=== PATIENT | female | born 1965 | race African-American/Black ===

== ENCOUNTER → 2016-07-27 | Outpatient (CLI) | payer OTHER ==
[~2016-07-27] VITALS: Ht 167.6 cm; Wt 166.6 kg
[~2016-07-27] MED LIST: ASPI1TAB69 PO; ATOR10TA15 PO; CARV12.52 PO; CHLORHEXIDINE GLUCONATE 2 % 1 PACK (2 CLOTHS) TOPICAL PRN; GLIP10TA6 PO; INSULIN HUMAN REGULAR 1,000 UNITS/10 ML VIAL SQ PRN; LACTATED RINGER'S 1000 ML IV PRN; LOSA50TA PO; MELO-1 PO; METOPROLOL TARTRATE 25 MG TAB PO PRN; NOVONP2 SQ; ONDANSETRON HCL 4 MG/2 ML VIAL IV PUSH ONE; PHENYLEPH/NS 1000 MCG/10 ML SYR IV ONE; POVIDONE IODINE 5% (ANTISEPSIS KIT) 4 APPLICATIONS EACH NARE PRN; PROM25TA5 PO; PROPOFOL 200 MG/20 ML AMP IV ONE; SODIUM CHLORID 0.9% 500 ML IV PRN; SPIR25TA PO; TORS10TA2 PO; ZANTTAB9 PO; ePHEDrine/NS 25 MG/5 ML SYR IV ONE
[2016-07-27 12:50] VITALS: BP 144/82; PULSE 82; RESP 18; TEMP 99.1; O2SAT 97
[2016-07-27 16:27] VITALS: BP 131/66; PULSE 92; RESP 18; TEMP 98; O2SAT 95
--- NOTE | 2016-07-28 07:20 | MR ---
cc: CARIDAD LEWIS DATE 07/27/2016 DATE OF 1965 PROCEDURE PERFORMED EGD/colonoscopy INDICATIONS FOR THE PROCEDURE Evaluation of gastroesophageal reflux disease, rectal bleeding, screening colonoscopy. Photographs and biopsies were taken. PREMEDICATION Administered by anesthesiology. MONITORING Accomplished with pulse oximeter, EKG, blood pressure monitor. PROCEDURE NOTE After informed consent was obtained and the procedure risks and benefits were explained including the risks of bleeding, sepsis, perforation, and the risks of anesthesia, the patient was placed in the left lateral position. The video endoscope was inserted per the oral route. The patient was intubated to protect the airway due to her endogenous obesity. The esophagus appeared to be normal throughout with a normal EG junction. The stomach was entered. The stomach did have a twisted configuration, but the scope was ultimately maneuvered to the distal antrum. The mucosa throughout appeared to be normal in the retroflex view. The cardia and fundus were normal. The pylorus was patent. As the scope was passed to the pyloric bowel to the duodenal bulb, at the edges of the duodenal bulb, there appeared to be a small bowel anastomosis double channel anastomosis. There appeared to afferent/efferent loops. Scope length was limited due to the elongated portion of the stomach and twisted configuration. The small bowel mucosa appeared to be normal. Once again, the anastomosis appeared to be right at the mid to distal bulb region. Clear bile was noted. There was no obvious obstruction. One small lymphangiectasia like nodule was noted, this was biopsied x2. The scope was then gradually withdrawn. The patient tolerated this well. She was repositioned and the enteroscope was utilized to examine the colon once again due to the patient large body habitus. The scope was advanced with some difficulty. There was some residual thick secretions noted in the colon in a patchy fashion making complete evaluation difficult. The mucosa when visualized appeared to be grossly normal. As the scope was advanced beyond the ileocecal valve and into the cecum, there appeared to be a large 2-1/2 to 3 cm sessile polyp on a wide-based firmly attached to the cecal floor. The lesion was not removed as it was felt prudent to have this removed at a later date with endoscopic mucosal resection and lifting of the polyp off its base. Two biopsies were obtained on the superior portion of the polyp which appeared to be slightly firm. I cannot rule out a carcinoma at this point. The scope was then gradually withdrawn. Once again examining the colonic mucosa as best possible. Again, there was some patchy residual material noted which was difficult to suction. This had a wax-like configuration. The scope was passed in the rectum and retroflexed, internal hemorrhoids were noted without any active bleeding. The patient tolerated the procedure well. She was extubated and sent to the recovery room in stable condition. IMPRESSION 1. Upper endoscopy failed to reveal an esophagitis. 2. The patient has had prior surgical intervention with possible jejunostomy, however, anastomosis was to the upper duodenal bulb. The stomach itself was intact without surgical intervention noted to the gastric mucosa. The gastric mucosa, when visualized, appeared to be normal. 3. Colonoscopy was performed. This was somewhat limited because of the residual fecal matter mentioned above, however, a large 2-1/2 cm polypoid mass lesion was noted in the cecum. This was left intact. Two biopsies were taken. Consideration will be given towards lifting the polyp and performing EMR to remove the polyp in total in the future. We will follow up the biopsies taken today and discussed the findings with the patient. MD MADYSON Kenny/GANESH /3:17 PM /7:07 AM
--- NOTE | 2016-07-28 13:44 | EKG ---
Date Performed: 07/27/2016 Time Performed: 12:03:05 PTAGE: 51 years EKG: Sinus rhythm NORMAL ECG NO PREVIOUS TRACING DOCTOR: Alpesh Yancey Interpretating Date/Time 07/28/2016 13:40:13
== END ==
LOC: HEND 11:10
PROVIDERS: ATTEND Internal Medicine Gastroenterology
DX: Z12.11 Encounter for screening for malignant neoplasm of colon (principal); K21.9 Gastro-esophageal reflux disease without esophagitis; K62.5 Hemorrhage of anus and rectum; E66.8 Other obesity; K63.89 Other specified diseases of intestine; K31.89 Other diseases of stomach and duodenum; K64.8 Other hemorrhoids; Z01.810 Encounter for preprocedural cardiovascular examination; D12.0 Benign neoplasm of cecum; E11.9 Type 2 diabetes mellitus without complications; Z79.4 Long term (current) use of insulin
CPT/HCPCS: 00740; 00810; 43239; 45380; 82948; 88305; 93005; J2370; J2405; J3010

== ENCOUNTER 2016-09-08 14:08 | Inpatient (IN) | payer OTHER ==
[~2016-09-08] VITALS: Ht 167.6 cm; Wt 162.6 kg
[~2016-09-08 14:08] MED LIST changes: -ASPI1TAB69 PO; -CHLORHEXIDINE GLUCONATE 2 % 1 PACK (2 CLOTHS) TOPICAL PRN; -INSULIN HUMAN REGULAR 1,000 UNITS/10 ML VIAL SQ PRN; -LACTATED RINGER'S 1000 ML IV PRN; -METOPROLOL TARTRATE 25 MG TAB PO PRN; -ONDANSETRON HCL 4 MG/2 ML VIAL IV PUSH ONE; -PHENYLEPH/NS 1000 MCG/10 ML SYR IV ONE; -POVIDONE IODINE 5% (ANTISEPSIS KIT) 4 APPLICATIONS EACH NARE PRN; -PROM25TA5 PO; -PROPOFOL 200 MG/20 ML AMP IV ONE; -SODIUM CHLORID 0.9% 500 ML IV PRN; -ZANTTAB9 PO; -ePHEDrine/NS 25 MG/5 ML SYR IV ONE
[2016-09-21] MEDS ORDERED: DULA0.5I SQ (10:30)
[2016-09-21] MEDS ORDERED: PANT40TA3 PO (10:30)
[2016-09-21] MEDS ORDERED: RANI150T PO (10:30)
[2016-09-21] MEDS ORDERED: ASPI-437 PO (10:30)
[2016-09-21] MEDS ORDERED: SUCR1TAB PO (10:30)
[2016-09-21] MEDS ORDERED: ESCI10TA PO (10:30)
[2016-09-21] MEDS ORDERED: PROM25TA10 PO (10:30)
[2016-09-22 06:40] VITALS: BP 122/75; PULSE 78; RESP 16; TEMP 97.1; O2SAT 98
[2016-09-22] MEDS ORDERED: LACTATED RINGER'S 1000 ML IV PRN (06:45)
[2016-09-22] MEDS ORDERED: SODIUM CHLORID 0.9% 500 ML IV PRN (06:45)
[2016-09-22] MEDS ORDERED: METRONIDAZOLE 500 MG/100 ML ISONTONIC SOLN IV SCH (06:45)
[2016-09-22] MEDS ORDERED: ceFAZolin 2 GM PREMIX 50 ML IV SCH (06:45)
[2016-09-22] MEDS ORDERED: ALVIMOPAN 12 MG CAPSULE - On Call PO SCH (06:45)
[2016-09-22] MEDS ORDERED: METOPROLOL TARTRATE 25 MG TAB PO PRN (06:45)
[2016-09-22] MEDS ORDERED: CHLORHEXIDINE GLUCONATE 2 % 1 PACK (2 CLOTHS) TOPICAL PRN (06:45)
[2016-09-22] MEDS ORDERED: INSULIN HUMAN REGULAR 1,000 UNITS/10 ML VIAL SQ PRN (06:45)
[2016-09-22] MEDS ORDERED: POVIDONE IODINE 5% (ANTISEPSIS KIT) 4 APPLICATIONS EACH NARE PRN (06:45)
[2016-09-22 07:05] LABS: AUTOMATED NEUTROPHIL # 5.9 TH/MM3 (1.8-7.7); BASOPHIL # 0.1 TH/MM3 (0-0.2); EOSINOPHIL # 0.3 TH/MM3 (0-0.4); EOSINOPHIL % 3.5 % (0.0-4.0); HEMATOCRIT 39.9 % (35.0-46.0); HEMO FLAGS DIFF FINAL; LYMPH % 28.3 % (9.0-44.0); LYMPHOCYTE # 2.8 TH/MM3 (1.0-4.8); MEAN CELL VOLUME 71.2 FL (80.0-100.0); MEAN CORPUSCULAR HEMOGLOBIN 22.8 PG (27.0-34.0); MEAN CORPUSCULAR HGB CONC 32.1 % (32.0-36.0); MONO % 6.7 % (0.0-8.0); NEUT % 60.5 % (16.0-70.0); PLATELET COUNT 318 TH/MM3 (150-450); RED BLOOD COUNT 5.61 MIL/MM3 (4.00-5.30); RED CELL DISTRIBUTION WIDTH 16.8 % (11.6-17.2); WHITE BLOOD COUNT 9.8 TH/MM3 (4.0-11.0)
[2016-09-22 07:26] LABS: ALKALINE PHOSPHATASE 93 U/L (45-117); TOTAL BILIRUBIN ADULT 0.6 MG/DL (0.2-1.0)
[2016-09-22 07:32] LABS: ALT (GPT) 22 U/L (10-53); ANION GAP 10 MEQ/L (5-15); AST (GOT) 21 U/L (15-37); BICARBONATE 25.2 MEQ/L (21.0-32.0); BLOOD UREA NITROGEN 11 MG/DL (7-18); CHLORIDE 106 MEQ/L (98-107); GLOMERULAR FILTRATION RATE 87 ML/MIN (>89); SODIUM (NA) 141 MEQ/L (136-145)
[2016-09-22 07:38] LABS: POTASSIUM 4.4 MEQ/L (3.5-5.1)
[2016-09-22] MEDS ORDERED: HYDROmorphone HCL PF 2 MG/ML VIAL ONE (07:51)
[2016-09-22] MEDS ORDERED: MIDAZOLAM HCL 2 MG/2 ML VIAL ONE (07:51)
[2016-09-22] MEDS ORDERED: fentaNYL CITRATE 250 MCG/5 ML AMP ONE (07:52)
[2016-09-22] MEDS ORDERED: ACETAMINOPHEN 1000 MG/100 ML VIAL IV ONE (07:52)
[2016-09-22] MEDS ORDERED: BUPIVACAINE/EPINEPHRINE 0.5% 50 ML VIAL INFIL ONE (08:29)
[2016-09-22] MEDS ORDERED: Post-op Orders (for Pharmacy) MISC XX ONE (11:02)
[2016-09-22] MEDS ORDERED: DO NOT ADM ANY ANTICOAGULANT DRUGS PRN (11:02)
[2016-09-22] MEDS: LACTATED RINGER'S 1000 ML INJ 1,000 ML IV SCH ×2 (11:05→22:06)
--- NOTE | 2016-09-22 11:05 | PD.OP ---
Operative Report Date of Surgery: Sep 22, 2016 Preoperative Diagnosis: cecal adenocarcinoma Morbid obesity Postoperative Diagnosis: same, small UH Procedure: lap assisted ascending colon resection repair small UH Anesthesia: general Surgeon: Meng Freedman Scleroscope Tester(s): Eliot Cassidy, MS3 Operation and Findings: Evidence of resected TV adenoma/cecal cancer adjacent to appendiceal orifice. Terminal ileum, appendix, cecum and ascending colon to pathology. EBL less than 25 ml. incidental UH. Meng Freedman MD Sep 22, 2016 11:05
[2016-09-22] MEDS ORDERED: *HYDROmorphone PF 1 MG VIAL PERIprocedural Use ONLY ONE ×3 (11:12→12:24)
[2016-09-22] MEDS ORDERED: *ONDANSETRON 4 MG VIAL PERIprocedural Use ONLY ONE (11:15)
[2016-09-22] MEDS ORDERED: SODIUM CHLORIDE 0.9% FLUSH 10 ML FLUSH IV FLUSH PRN (11:15)
[2016-09-22] MEDS ORDERED: MAGNESIUM HYDROXIDE SUSP 30 ML CUP PO PRN (11:15)
[2016-09-22] MEDS ORDERED: HYDROmorphone HCL PF 1 MG/ML VIAL IV PRN (11:15)
[2016-09-22] MEDS ORDERED: oxyCODONE/ACETAMINOPHEN 5 MG/325 MG TAB PO PRN (11:15)
[2016-09-22] MEDS ORDERED: GLUCAGON 1 MG/ML VIAL OTHER PRN (11:30)
[2016-09-22] MEDS ORDERED: SUCRALFATE 1 GM TAB PO PRN (11:30)
[2016-09-22] MEDS ORDERED: DEXTROSE 50% IN WATER 50 ML VIAL(D50) IV PRN (11:30)
[2016-09-22] MEDS ORDERED: DULAGLUTIDE SQ SCH (12:00)
[2016-09-22] MEDS ORDERED: PHENYLEPH/NS 1000 MCG/10 ML SYR IV ONE (12:00)
[2016-09-22] MEDS ORDERED: NEOSTIGMINE METHYLSULFATE 10 MG/10 ML VIAL IV PUSH ONE (12:00)
[2016-09-22] MEDS ORDERED: ePHEDrine/NS 25 MG/5 ML SYR IV ONE (12:00)
[2016-09-22] MEDS ORDERED: PROPOFOL 200 MG/20 ML AMP IV ONE (12:00)
[2016-09-22] MEDS ORDERED: NORMOSOL R INJ 1,000 ML IV ONE (12:00)
[2016-09-22] MEDS: oxyCODONE/ACETAMINOPHEN 5 MG/325 MG TAB PO PRN ×2 (14:41→20:04)
[2016-09-22] MEDS: ACETAMINOPHEN 1000 MG/100 ML VIAL IV SCH ×2 (14:41→21:53)
[2016-09-22 16:00] VITALS: BP 168/80; PULSE 98; RESP 20; TEMP 96.9; O2SAT 95
[2016-09-22] MEDS: glipiZIDE 10 MG TAB PO SCH (16:00)
[2016-09-22 16:35] VITALS: O2SAT 95
--- NOTE | 2016-09-22 16:45 | MP ---
cc: LOUISE HILL M.D. DATE OF SURGERY: 09/22/2016 PREOPERATIVE DIAGNOSIS Cecal adenocarcinoma and morbid obesity. POSTOPERATIVE DIAGNOSES 1. Cecal adenocarcinoma and morbid obesity. 2. Small umbilical hernia. PROCEDURE Laparoscopic-assisted a ascending colon resection and repair of small umbilical hernia. SURGEON Dr. Louise Hill LEACHER SURGEON Dr. Eliot Pierce SECOND LEACHER Yady Cassidy, MS3 ANESTHESIA General. INDICATIONS This is a very pleasant 51-year-old morbidly obese -[place]onegas[place] woman who had undergone a colonoscopic submucosal resection of a tubulovillous adenoma of the cecum. Pathology demonstrated a low-grade adenocarcinoma of the cecum. Recommendations were made for a cancer operation. INTRAOPERATIVE FINDINGS Successful removal of the terminal ileum, appendix, cecum and ascending colon. On opening the specimen, there was evidence of a resected cecal cancer adjacent to the appendiceal orifice. Specimen was sent to pathology. Estimated blood loss less than 25 mL. DESCRIPTION OF PROCEDURE IN DETAIL The patient identified as Jina Mora, taken to the operating room and placed in supine position. Sequential compression devices were placed on bilateral lower extremities. Following induction of adequate general endotracheal anesthesia, the patient's abdomen was prepped and draped in the usual sterile fashion with Betadine. A timeout procedure was performed. Following completion of timeout procedure to everyone's satisfaction within the room, 0.5% Marcaine with epinephrine was placed at each incision site. A supraumbilical 2-3 cm vertical incision was carried out with a scalpel and dissection continued posteriorly through a very generous subcutaneous fatty tissue layer. The base of the umbilicus was sequentially grasped and retracted anteriorly and ultimately incised at its base where a small umbilical hernia defect was present. The peritoneum was entered with the surgeon's finger through about a less than 2 cm umbilical hernia defect and the [employer] balloon [place] trocar was placed in the peritoneal cavity and its balloon inflated with CO2 insufflation until a level of 15 mmHg ensued. Three laparoscopic 5 mm bariatric trocars were then placed in the peritoneal cavity under direct laparoscopic view after incision of the skin with a scalpel. Attention was turned first to identifying the terminal ileum, appendix and cecum. The patient had a large uterus with uterine fibroids. Mobilization along the white line of Toldt was performed using the harmonic scalpel and there was some evidence of scarring. The patient had a surgery when she was [age] days old and there was some scar tissue present. The cecum, ascending colon and appendix were able to be mobilized along the avascular planes. Attention was then turned towards mobilization of the hepatic flexure and the proximal transverse colon, which was performed using the harmonic scalpel. When then had been mobilize adequately to consider open portion of the procedure the laparoscopic equipment was removed. Local anesthetic was placed and a transverse incision about 8-10 cm in length was made in the right midabdomen using a scalpel and electrocautery for hemostasis. Dissection continued posteriorly through a generous subcutaneous fatty tissue layer and a lipomatous mass was encountered and excised. Dissection continued to the patient's abdominal wall fascia, this was incised with the electrocautery. The underlying rectus muscle and oblique muscles were divided with electrocautery. Entry into the peritoneal cavity was safely performed. The peritoneal incision was opened the length of the skin incision. The Cardiostrong wound retractor system was then placed into the wound which allowed for excellent visualization. The cecum, appendix and terminal ileum were brought up through the wound retracting system and a window was made about 8-10 cm proximal to the ileocecal valve and the mesentery and the ileum was divided with the linear cutting stapling device. Mesentery was taken down using the harmonic scalpel. Attention was then turned to division of the colon and similarly a window in the mesentery was made with electrocautery. The colon was divided with the linear cutting stapling device and the mesenteric dissection was performed using a combination electrocautery and the harmonic scalpel. The main vasculature to the right colon was cross-clamped with a Karina clamp and the distal vessels were divided with harmonic scalpel. A 2-0 Vicryl tie was placed and excellent hemostasis was obtained. A functional end-to-end, [id number]-[id number] small ebyrr-io-eltjz anastomosis was performed using a linear cutting stapling device and a TX stapler, 3-0 silk was used to reinforce the distal staple line. 3-0 silk sutures were used to close the mesentery. 3-0 silk sutures were used to dunk in the staple lines. Anastomosis was widely patent, there appeared to be good blood supply and no evidence of obstruction. It was returned to its normal anatomic position in the right midabdomen. There was no omentum due her prior surgery to drape over the anastomosis. Irrigation of the right side of the abdomen was performed and suctioned out. There was no evidence of bleeding. The Christian wound retractor was removed. The posterior fascia and peritoneum were closed with running #1 single stranded PDS sutures. The muscular layer was irrigated with saline. The anterior fascial layers were approximated running #1 single stranded PDS sutures. The subcutaneous layer was irrigated copiously with saline. Small bleeding points were controlled with electrocautery. Two layers of 2-0 Vicryl sutures were used to gently approximate the generous subcutaneous fatty tissue layer. Attention was then turned to closure of the umbilical hernia defect. Laparoscopic trocars were removed and the umbilical defect was identified. Two interrupted 0 Vicryl ntnzpx-yr-plwbz sutures were used to approximate the small umbilical opening. The wound was irrigated with saline. A single interrupted 2-0 Vicryl suture was placed to approximate the subcutaneous fatty tissue. Skin incisions were approximated with 4-0 Monocryl subcuticular sutures. Dressings were applied, Mastisol inch-brown Steri-Strips at a small laparoscopic trocar sites. The right midabdominal transverse incision was covered in a LEEANN dressing placed in a traditional fashion. The patient tolerated the procedures without apparent complication. Sponge, needle and instrument counts were correct at the end of the case. MD ALEXANDR Caceres/TESS /11:04 AM /4:14 PM
[2016-09-22] MEDS: INSULIN NovoLIN REGULAR SUPPLEMENTAL SCALE SQ SCH ×2 (18:47→21:00)
[2016-09-22 20:00] VITALS: BP 157/87; PULSE 97; RESP 20; TEMP 97.8; O2SAT 98
[2016-09-22] MEDS: LOSARTAN 50 MG TAB PO SCH (21:52)
[2016-09-22] MEDS: CARVEDILOL 12.5 MG TAB PO SCH (21:52)
[2016-09-22] MEDS: DOCUSATE SODIUM 100 MG CAP PO SCH (21:52)
[2016-09-22] MEDS: SODIUM CHLORIDE 0.9% FLUSH 10 ML FLUSH IV FLUSH SCH (21:53)
[2016-09-22] MEDS: ONDANSETRON HCL 4 MG/2 ML VIAL IV PRN (21:53)
[2016-09-22] MEDS: INSULIN HUMAN NPH 1,000 UNITS/10 ML VIAL SQ SCH (22:05)
[2016-09-23] VITALS (7 sets, daily range): BP systolic 116–134; BP diastolic 67–83; PULSE 71–102; RESP 15–20; TEMP 96.9–98.7; O2SAT 92–94
[2016-09-23] MEDS: FAMOTIDINE 20 MG TAB PO PRN (02:17)
[2016-09-23] MEDS: ACETAMINOPHEN 1000 MG/100 ML VIAL IV SCH ×4 (03:14→21:39)
[2016-09-23 06:12] LABS: AUTOMATED NEUTROPHIL # 14.9 TH/MM3 (1.8-7.7); BASOPHIL % 0.2 % (0.0-2.0); HEMATOCRIT 36.3 % (35.0-46.0); HEMO FLAGS DIFF FINAL; LYMPH % 11.4 % (9.0-44.0); LYMPHOCYTE # 2.1 TH/MM3 (1.0-4.8); MEAN CELL VOLUME 72.1 FL (80.0-100.0); MEAN CORPUSCULAR HEMOGLOBIN 21.9 PG (27.0-34.0); MEAN CORPUSCULAR HGB CONC 30.4 % (32.0-36.0); MONO % 7.8 % (0.0-8.0); NEUT % 80.6 % (16.0-70.0); PLATELET COUNT 275 TH/MM3 (150-450); RED BLOOD COUNT 5.03 MIL/MM3 (4.00-5.30); RED CELL DISTRIBUTION WIDTH 16.5 % (11.6-17.2); WHITE BLOOD COUNT 18.5 TH/MM3 (4.0-11.0)
[2016-09-23 06:29] LABS: BICARBONATE 25.2 MEQ/L (21.0-32.0); POTASSIUM 3.9 MEQ/L (3.5-5.1)
[2016-09-23] MEDS: glipiZIDE 10 MG TAB PO SCH ×2 (06:41→16:00)
[2016-09-23] MEDS: INSULIN NovoLIN REGULAR SUPPLEMENTAL SCALE SQ SCH ×4 (06:42→21:00)
[2016-09-23] MEDS: LACTATED RINGER'S 1000 ML INJ 1,000 ML IV SCH ×2 (07:56→17:05)
[2016-09-23] MEDS: SODIUM CHLORIDE 0.9% FLUSH 10 ML FLUSH IV FLUSH SCH ×2 (09:00→21:00)
[2016-09-23] MEDS: INSULIN HUMAN NPH 1,000 UNITS/10 ML VIAL SQ SCH ×2 (09:00→21:00)
[2016-09-23] MEDS: ASPIRIN EC 81 MG TABEC PO SCH (09:06)
[2016-09-23] MEDS: DOCUSATE SODIUM 100 MG CAP PO SCH ×2 (09:06→21:38)
[2016-09-23] MEDS: TORSEMIDE 5 MG TAB PO SCH (09:06)
[2016-09-23] MEDS: MELOXICAM 15 MG TAB PO SCH (09:06)
[2016-09-23] MEDS: ALVIMOPAN 12 MG CAPSULE - Post-op dosing PO SCH ×2 (09:07→21:38)
[2016-09-23] MEDS: SPIRONOLACTONE 25 MG TAB PO SCH (09:07)
[2016-09-23] MEDS: ATORVASTATIN 10 MG TAB PO SCH (09:07)
[2016-09-23] MEDS: LOSARTAN 50 MG TAB PO SCH ×2 (09:07→21:38)
[2016-09-23] MEDS: PANTOPRAZOLE SOD 40 MG DELAYED RELEASE TAB PO SCH (09:07)
[2016-09-23] MEDS: ESCITALOPRAM OXALATE 10 MG TAB PO SCH (09:07)
[2016-09-23] MEDS: CARVEDILOL 12.5 MG TAB PO SCH ×2 (09:07→21:38)
[2016-09-23] MEDS: ENOXAPARIN SODIUM 40 MG/0.4 ML SYRINGE SQ SCH (09:54)
[2016-09-23] MEDS: ONDANSETRON HCL 4 MG/2 ML VIAL IV PRN (11:06)
--- NOTE | 2016-09-23 12:01 | HHI.PR ---
Subjective Subjective Notes Up in chair, some nausea. Has walked in room and did well, helped her get rid of some gas. Pain controlled with meds. Objective Vitals/I&O Vital Signs Date Time Temp Pulse Resp B/P Pulse Ox O2 Delivery O2 Flow Rate FiO2 09/23/16 09:35 18 09/23/16 09:31 92 21 09/23/16 08:00 97.6 85 117/69 09/22/16 13:00 Nasal Cannula 3 Labs Laboratory Tests Test 09/23/16 05:24 White Blood Count 18.5 Red Blood Count 5.03 Hemoglobin 11.0 Hematocrit 36.3 Mean Corpuscular Volume 72.1 Mean Corpuscular Hemoglobin 21.9 Mean Corpuscular Hemoglobin 30.4 Concent Red Cell Distribution Width 16.5 Platelet Count 275 Mean Platelet Volume 9.2 Neutrophils (%) (Auto) 80.6 Lymphocytes (%) (Auto) 11.4 Monocytes (%) (Auto) 7.8 Eosinophils (%) (Auto) 0.0 Basophils (%) (Auto) 0.2 Neutrophils # (Auto) 14.9 Lymphocytes # (Auto) 2.1 Monocytes # (Auto) 1.4 Eosinophils # (Auto) 0.0 Basophils # (Auto) 0.0 CBC Comment DIFF FINAL Differential Comment Sodium Level 139 Potassium Level 3.9 Chloride Level 105 Carbon Dioxide Level 25.2 Anion Gap 9 Blood Urea Nitrogen 11 Creatinine 0.93 Estimat Glomerular Filtration 77 Rate Random Glucose 164 Calcium Level 8.5 Cardiovascular: Regular Lungs: Clear Abdomen: Other (dressing with one spot of dried blood. Steri strips intact, no erythema or drainage. few BSs.), Post-op tenderness Extremities: No edema, Perfused A/P Assessment and Plan POD 1 lap assisted ascending colectomy. Doing well. Nausea, will add scopolamine patch. Continue OOB, walking. Increase in diet when nausea resolved, bowel function returns. Meng Freedman MD Sep 23, 2016 12:01
[2016-09-23] MEDS: oxyCODONE/ACETAMINOPHEN 5 MG/325 MG TAB PO PRN (12:53)
[2016-09-23] MEDS ORDERED: SCOPOLAMINE 1.5 MG PATCH T-DERMAL SCH (13:00)
[2016-09-24] VITALS: BP 140/67; PULSE 78; RESP 16; TEMP 98; O2SAT 93
[2016-09-24] MEDS: FAMOTIDINE 20 MG TAB PO PRN (01:03)
[2016-09-24] MEDS: ACETAMINOPHEN 1000 MG/100 ML VIAL IV SCH ×4 (03:46→20:24)
[2016-09-24] MEDS: LACTATED RINGER'S 1000 ML INJ 1,000 ML IV SCH ×3 (03:47→23:31)
[2016-09-24] MEDS: INSULIN NovoLIN REGULAR SUPPLEMENTAL SCALE SQ SCH ×4 (06:24→20:30)
[2016-09-24] MEDS: glipiZIDE 10 MG TAB PO SCH ×2 (06:24→15:57)
[2016-09-24 08:00] VITALS: BP 132/76; PULSE 79; RESP 16; TEMP 99; O2SAT 94
[2016-09-24] MEDS: INSULIN HUMAN NPH 1,000 UNITS/10 ML VIAL SQ SCH ×2 (08:02→20:29)
[2016-09-24] MEDS: LOSARTAN 50 MG TAB PO SCH ×2 (08:04→20:23)
[2016-09-24] MEDS: ESCITALOPRAM OXALATE 10 MG TAB PO SCH (08:04)
[2016-09-24] MEDS: DOCUSATE SODIUM 100 MG CAP PO SCH ×2 (08:04→20:23)
[2016-09-24] MEDS: ATORVASTATIN 10 MG TAB PO SCH (08:04)
[2016-09-24] MEDS: SPIRONOLACTONE 25 MG TAB PO SCH (08:05)
[2016-09-24] MEDS: PANTOPRAZOLE SOD 40 MG DELAYED RELEASE TAB PO SCH (08:05)
[2016-09-24] MEDS: ASPIRIN EC 81 MG TABEC PO SCH (08:05)
[2016-09-24] MEDS: TORSEMIDE 5 MG TAB PO SCH (08:05)
[2016-09-24] MEDS: ALVIMOPAN 12 MG CAPSULE - Post-op dosing PO SCH ×2 (08:05→20:23)
[2016-09-24] MEDS: CARVEDILOL 12.5 MG TAB PO SCH ×2 (08:05→20:23)
[2016-09-24] MEDS: MELOXICAM 15 MG TAB PO SCH (08:05)
[2016-09-24] MEDS: SODIUM CHLORIDE 0.9% FLUSH 10 ML FLUSH IV FLUSH SCH ×2 (08:06→20:23)
[2016-09-24] MEDS: ENOXAPARIN SODIUM 40 MG/0.4 ML SYRINGE SQ SCH (09:33)
[2016-09-24 12:00] VITALS: BP 134/82; PULSE 80; RESP 16; TEMP 97; O2SAT 93
--- NOTE | 2016-09-24 13:30 | HHI.PR ---
Subjective Subjective Notes Nausea resolved; tolerating diet at this time; had a bowel movement today Reports some heartburn mid-chest Objective Vitals/I&O Vital Signs Date Time Temp Pulse Resp B/P Pulse Ox O2 Delivery O2 Flow Rate FiO2 09/24/16 08:00 99.0 79 16 132/76 94 09/23/16 18:32 21 09/22/16 13:00 Nasal Cannula 3 Lungs: Clear Abdomen: Non-distended Narrative Exam Dressing with minimal spotting A/P Assessment and Plan Assessment and Plan POD #2 lap assisted ascending colectomy. Nausea resolved; +BM Continue OOB, walking. Advance diet Add Carlitos Russo MD Sep 24, 2016 13:30
[2016-09-24] MEDS: ALUMINUM/MAGNESIUM/SIMETH 30 ML CUP PO PRN (14:00)
[2016-09-24 16:00] VITALS: BP 135/79; PULSE 81; RESP 13; TEMP 97; O2SAT 96
[2016-09-24 20:00] VITALS: BP 163/74; PULSE 79; RESP 20; TEMP 98.3; O2SAT 95
[2016-09-25] VITALS: BP 136/77; PULSE 82; RESP 20; TEMP 97.6; O2SAT 95
[2016-09-25] MEDS: ACETAMINOPHEN 1000 MG/100 ML VIAL IV SCH ×4 (03:17→20:26)
[2016-09-25] MEDS: INSULIN NovoLIN REGULAR SUPPLEMENTAL SCALE SQ SCH ×4 (06:20→21:00)
[2016-09-25] MEDS: glipiZIDE 10 MG TAB PO SCH ×2 (07:00→15:42)
[2016-09-25 08:00] VITALS: BP 129/66; PULSE 77; RESP 16; TEMP 98.7; O2SAT 95
[2016-09-25] MEDS: INSULIN HUMAN NPH 1,000 UNITS/10 ML VIAL SQ SCH ×2 (09:00→21:59)
[2016-09-25] MEDS: PANTOPRAZOLE SOD 40 MG DELAYED RELEASE TAB PO SCH (09:00)
[2016-09-25] MEDS: LACTATED RINGER'S 1000 ML INJ 1,000 ML IV SCH ×2 (09:08→22:00)
[2016-09-25] MEDS: ALUMINUM/MAGNESIUM/SIMETH 30 ML CUP PO PRN (09:11)
[2016-09-25] MEDS: ALVIMOPAN 12 MG CAPSULE - Post-op dosing PO SCH ×2 (09:12→20:25)
[2016-09-25] MEDS: TORSEMIDE 5 MG TAB PO SCH (09:12)
[2016-09-25] MEDS: LOSARTAN 50 MG TAB PO SCH ×2 (09:12→20:25)
[2016-09-25] MEDS: DOCUSATE SODIUM 100 MG CAP PO SCH ×2 (09:12→20:26)
[2016-09-25] MEDS: ATORVASTATIN 10 MG TAB PO SCH (09:12)
[2016-09-25] MEDS: MELOXICAM 15 MG TAB PO SCH (09:13)
[2016-09-25] MEDS: ASPIRIN EC 81 MG TABEC PO SCH (09:13)
[2016-09-25] MEDS: ESCITALOPRAM OXALATE 10 MG TAB PO SCH (09:13)
[2016-09-25] MEDS: CARVEDILOL 12.5 MG TAB PO SCH ×2 (09:13→20:25)
[2016-09-25] MEDS: SPIRONOLACTONE 25 MG TAB PO SCH (09:13)
[2016-09-25] MEDS: SODIUM CHLORIDE 0.9% FLUSH 10 ML FLUSH IV FLUSH SCH ×2 (09:14→20:26)
[2016-09-25] MEDS: ENOXAPARIN SODIUM 40 MG/0.4 ML SYRINGE SQ SCH (10:14)
[2016-09-25 12:00] VITALS: BP 139/80; PULSE 75; RESP 20; TEMP 98.4; O2SAT 96
[2016-09-25 16:00] VITALS: BP 147/79; PULSE 75; RESP 24; TEMP 98.8; O2SAT 96
--- NOTE | 2016-09-25 17:10 | HHI.PR ---
Subjective Subjective Notes DAILY PROGRESS NOTE FOR SURGICAL ATTENDING, DR. ANURAG GARRETT Patient feels comfortable Satisfied with a medication Objective Vitals/I&O Vital Signs Date Time Temp Pulse Resp B/P Pulse Ox O2 Delivery O2 Flow Rate FiO2 09/25/16 16:03 18 09/25/16 08:00 98.7 77 129/66 95 09/24/16 20:16 21 09/22/16 13:00 Nasal Cannula 3 Labs Laboratory Tests Test 09/22/16 09/23/16 06:45 05:24 Total Bilirubin 0.6 MG/DL Aspartate Amino Transf 21 U/L (AST/SGOT) Alanine Aminotransferase 22 U/L (ALT/SGPT) Alkaline Phosphatase 93 U/L Total Protein 8.2 GM/DL Albumin 3.3 GM/DL Blood Type O POSITIVE Antibody Screen NEGATIVE Blood Bank Comment White Blood Count 18.5 TH/MM3 Red Blood Count 5.03 MIL/MM3 Hemoglobin 11.0 GM/DL Hematocrit 36.3 % Mean Corpuscular Volume 72.1 FL Mean Corpuscular Hemoglobin 21.9 PG Mean Corpuscular Hemoglobin 30.4 % Concent Red Cell Distribution Width 16.5 % Platelet Count 275 TH/MM3 Mean Platelet Volume 9.2 FL Neutrophils (%) (Auto) 80.6 % Lymphocytes (%) (Auto) 11.4 % Monocytes (%) (Auto) 7.8 % Eosinophils (%) (Auto) 0.0 % Basophils (%) (Auto) 0.2 % Neutrophils # (Auto) 14.9 TH/MM3 Lymphocytes # (Auto) 2.1 TH/MM3 Monocytes # (Auto) 1.4 TH/MM3 Eosinophils # (Auto) 0.0 TH/MM3 Basophils # (Auto) 0.0 TH/MM3 CBC Comment DIFF FINAL Differential Comment Sodium Level 139 MEQ/L Potassium Level 3.9 MEQ/L Chloride Level 105 MEQ/L Carbon Dioxide Level 25.2 MEQ/L Anion Gap 9 MEQ/L Blood Urea Nitrogen 11 MG/DL Creatinine 0.93 MG/DL Estimat Glomerular Filtration 77 ML/MIN Rate Random Glucose 164 MG/DL Calcium Level 8.5 MG/DL Cardiovascular: Regular Abdomen: Post-op tenderness, BS normal A/P Assessment and Plan POD #3 lap assisted ascending colectomy. Nausea resolved; +BM Continue OOB, walking. Advance diet Add Viktoriya Attending Statement NOTE FOR SURGICAL ATTENDING, DR. ANURAG GARRETT I attest that I had a [id number]-[id number] encounter with the patient on the same day, and personally performed and documented my assessment and findings in the medical record. The following services were provided during this hospital visit: Chart data review, vital sign assessments/reviewing monitor data Review of consultations notes if present. Medication orders/review and/or management Ordering and/or reviewing lab tests Ordering and/or interpreting/reviewing x-rays and/or diagnostic studies Care of the patient and discussion of the patient with the care team Documentation time To help prompt me to consider important information that might be impacting today's encounter and assessment, information from prior notes written by myself or my colleagues may have been "brought forward/copy and pasted" into today's note. Anurag Garrett MD Sep 25, 2016 17:10
[2016-09-25 20:00] VITALS: BP 135/84; PULSE 80; RESP 18; TEMP 96.8; O2SAT 96
[2016-09-26] VITALS: BP 145/74; PULSE 73; RESP 19; TEMP 98; O2SAT 95
[2016-09-26] MEDS: ACETAMINOPHEN 1000 MG/100 ML VIAL IV SCH ×2 (03:00→08:41)
[2016-09-26] MEDS: LACTATED RINGER'S 1000 ML INJ 1,000 ML IV SCH (05:05)
[2016-09-26] MEDS: INSULIN NovoLIN REGULAR SUPPLEMENTAL SCALE SQ SCH ×2 (05:39→11:00)
[2016-09-26] MEDS: glipiZIDE 10 MG TAB PO SCH (07:00)
[2016-09-26 08:00] VITALS: BP 171/80; PULSE 73; RESP 14; TEMP 96.4; O2SAT 95
[2016-09-26] MEDS: ASPIRIN EC 81 MG TABEC PO SCH (08:41)
[2016-09-26] MEDS: LOSARTAN 50 MG TAB PO SCH (08:41)
[2016-09-26] MEDS: TORSEMIDE 5 MG TAB PO SCH (08:41)
[2016-09-26] MEDS: ATORVASTATIN 10 MG TAB PO SCH (08:41)
[2016-09-26] MEDS: CARVEDILOL 12.5 MG TAB PO SCH (08:41)
[2016-09-26] MEDS: ALVIMOPAN 12 MG CAPSULE - Post-op dosing PO SCH (08:41)
[2016-09-26] MEDS: SPIRONOLACTONE 25 MG TAB PO SCH (08:41)
[2016-09-26] MEDS: PANTOPRAZOLE SOD 40 MG DELAYED RELEASE TAB PO SCH (08:41)
[2016-09-26] MEDS: MELOXICAM 15 MG TAB PO SCH (08:42)
[2016-09-26] MEDS: ESCITALOPRAM OXALATE 10 MG TAB PO SCH (08:42)
[2016-09-26] MEDS: DOCUSATE SODIUM 100 MG CAP PO SCH (08:42)
[2016-09-26] MEDS: SODIUM CHLORIDE 0.9% FLUSH 10 ML FLUSH IV FLUSH SCH (08:47)
[2016-09-26] MEDS: INSULIN HUMAN NPH 1,000 UNITS/10 ML VIAL SQ SCH (08:47)
[2016-09-26 09:11] VITALS: RESP 18
[2016-09-26] MEDS ORDERED: PERC5TAB12 PO (09:22)
--- NOTE | 2016-09-26 09:25 | HHI.DS ---
Discharge Summary Admission Date Sep 22, 2016 at 06:06 Discharge Date: Sep 26, 2016 Admitting Diagnosis cecal adenocarcinoma Procedures lap assisted ascending colon resection Brief History 51 year old morbidly obese woman who had undergone submucosal resection of cecal TV adenoma, found to have adenocarcinoma in specimen. CBC/BMP: 09/23/16 0524 09/23/16 0524 PE at Discharge Dressing with minimal spotting, steri strips and LEEANN dressing intact. Hospital Course Pt admitted through [facility], had surgery, recovered well. Tolerating po diet, walking, voiding, and having normal BMs. Desires DC. Pain minimal. Pt Condition on Discharge: Good Discharge Disposition: Discharge Home Discharge Instructions DIET: Follow Instructions for: Diabetic Diet Activities you can perform: Shower Only-No Bath Activities to Avoid: Strenuous Activity Meng Freedman MD Sep 26, 2016 09:25
[2016-09-26] MEDS: ENOXAPARIN SODIUM 40 MG/0.4 ML SYRINGE SQ SCH (10:24)
[2016-09-26] MEDS ORDERED: REMOVE OLD SCOPOLAMINE PATCH T-DERMAL SCH (13:00)
== END 2016-09-26 11:28 | disposition home or self-care (01) | DRG 330 ==
LOC: HSDI 09-22 06:06 → N07A 09-22 13:14
PROVIDERS: ADMIT Surgery Trauma Surgery; ATTEND Surgery Trauma Surgery
PROC: 0WQF0ZZ Repair Abdominal Wall, Open Approach (ICD-10-PCS; 2016-09-22)
PROC: 0JB80ZZ Excision of Abdomen Subcutaneous Tissue and Fascia, Open Approach (ICD-10-PCS; 2016-09-22)
PROC: 0DBB0ZZ Excision of Ileum, Open Approach (ICD-10-PCS; 2016-09-22)
PROC: 0DTK0ZZ Resection of Ascending Colon, Open Approach (ICD-10-PCS; 2016-09-22)
PROC: 0DTH0ZZ Resection of Cecum, Open Approach (ICD-10-PCS; principal; 2016-09-22 07:55)
DX: C18.0 Malignant neoplasm of cecum (principal); Z68.43 Body mass index [BMI] 50.0-59.9, adult; I11.0 Hypertensive heart disease with heart failure; I50.32 Chronic diastolic (congestive) heart failure; E66.01 Morbid (severe) obesity due to excess calories; K42.9 Umbilical hernia without obstruction or gangrene; D17.1 Benign lipomatous neoplasm of skin and subcutaneous tissue of trunk; R12 Heartburn; E78.5 Hyperlipidemia, unspecified; G47.30 Sleep apnea, unspecified; E10.9 Type 1 diabetes mellitus without complications; K21.9 Gastro-esophageal reflux disease without esophagitis; Z79.84 Long term (current) use of oral hypoglycemic drugs
CPT/HCPCS: 80048; 80053; 82948; 85025; 86850; 86900; 86901; 88309; 94150; J0131; J0690; J1170; J1650; J1815; J2250; J2370; J2405; J2710; J3010; J7120

== ENCOUNTER 2017-03-28 10:12 | Observation (INO) | payer OTHER ==
[~2017-03-28] VITALS: Ht 167.6 cm; Wt 163.0 kg
[~2017-03-28 10:12] MED LIST changes: +ASPI-437 PO; +DULA0.5I SQ; +ESCI10TA PO; -MELO-1 PO; +MELO15TA20 PO; +PANT40TA3 PO; +PERC5TAB12 PO; +PROM25TA10 PO; +RANI150T PO; +SUCR1TAB PO
[2017-03-28 10:14] VITALS: BP 167/101; PULSE 88; RESP 18; TEMP 98.9; O2SAT 100
[2017-03-28 11:49] LABS: AUTOMATED NEUTROPHIL # 4.2 TH/MM3 (1.8-7.7); BASOPHIL # 0.1 TH/MM3 (0-0.2); BASOPHIL % 0.6 % (0.0-2.0); EOSINOPHIL # 0.4 TH/MM3 (0-0.4); EOSINOPHIL % 4.3 % (0.0-4.0); HEMATOCRIT 38.7 % (35.0-46.0); HEMOGLOBIN 12.3 GM/DL (11.6-15.3); LYMPH % 35.7 % (9.0-44.0); LYMPHOCYTE # 2.9 TH/MM3 (1.0-4.8); MEAN CELL VOLUME 72.6 FL (80.0-100.0); MEAN CORPUSCULAR HEMOGLOBIN 23.1 PG (27.0-34.0); MEAN CORPUSCULAR HGB CONC 31.9 % (32.0-36.0); MEAN PLATELET VOLUME 8.8 FL (7.0-11.0); MONO % 8.9 % (0.0-8.0); MONOCYTE # 0.7 TH/MM3 (0-0.9); NEUT % 50.5 % (16.0-70.0); PLATELET COUNT 294 TH/MM3 (150-450); RED BLOOD COUNT 5.34 MIL/MM3 (4.00-5.30); RED CELL DISTRIBUTION WIDTH 17.6 % (11.6-17.2); WHITE BLOOD COUNT 8.2 TH/MM3 (4.0-11.0)
[2017-03-28 12:00] LABS: INTERNATIONAL NORMALIZED RATIO 1.1 RATIO; PROTHROMBIN TIME - PATIENT 10.9 SEC (9.8-11.6)
[2017-03-28 12:04] LABS: ALBUMIN 2.9 GM/DL (3.4-5.0); AST (GOT) 21 U/L (15-37); BICARBONATE 24.4 MEQ/L (21.0-32.0); BLOOD UREA NITROGEN 9 MG/DL (7-18); CALCIUM 8.8 MG/DL (8.5-10.1); CHLORIDE 106 MEQ/L (98-107); CREATININE 0.64 MG/DL (0.50-1.00); GLOMERULAR FILTRATION RATE 117 ML/MIN (>89); GLUCOSE,RANDOM 171 MG/DL (74-106); LIPASE 60 U/L (73-393); MAGNESIUM 2.3 MG/DL (1.5-2.5); SODIUM (NA) 138 MEQ/L (136-145)
[2017-03-28 12:11] LABS: ALKALINE PHOSPHATASE 121 U/L (45-117); ALT (GPT) 42 U/L (10-53); TOTAL BILIRUBIN ADULT 0.2 MG/DL (0.2-1.0); TOTAL PROTEIN 7.6 GM/DL (6.4-8.2); TROPONIN I LESS THAN 0.02 NG/ML (0.02-0.05)
--- NOTE | 2017-03-28 12:13 | RADRPT ---
EXAM DATE/TIME: 03/28/2017 11:56 [facility] COMPARISON: No previous studies available for comparison. INDICATIONS : Short of breath with syncope, weakness. MEDICAL HISTORY : None. SURGICAL HISTORY : None. ENCOUNTER: Initial ACUITY: 1 day PAIN SCORE: 0/10 LOCATION: Left chest TECH NOTE: TUAN MOTLEY MR#[id number] : 63 Exam date/desc:March 28, 2017CHEST PA & LAT FINDINGS: PA and lateral views of the chest demonstrate the lungs to be symmetrically aerated without evidence of mass, infiltrate or effusion. The cardiomediastinal contours are unremarkable. Osseous structure s are intact. CONCLUSION: No acute disease. Carlitos Desai MD on March 28, 2017 at 12:11 Board Certified Radiologist. This report was verified electronically.
[2017-03-28 13:00] VITALS: BP 169/80; PULSE 83; RESP 20; O2SAT 97
[2017-03-28] MEDS ORDERED: NITROGLYCERIN 0.4 MG SL 25 TABS/BTL SL ONE (13:00)
[2017-03-28] MEDS ORDERED: ACETAMINOPHEN 325 MG TAB PO ONE ×2 (13:00→13:15)
[2017-03-28] MEDS ORDERED: ASPIRIN 325 MG TAB PO ONE (13:15)
--- NOTE | 2017-03-28 13:24 | RADRPT ---
EXAM DATE/TIME: 03/28/2017 13:09 [facility] COMPARISON: No previous studies available for comparison. INDICATIONS : Midsternal pain with dizziness. RADIATION DOSE: 50.20 CTDIvol (mGy) MEDICAL HISTORY : Congestive hearrt failure. Hypertension. Carcinoma, colon. SURGICAL HISTORY : ENCOUNTER: Initial ACUITY: 1 day PAIN SCALE: 0/10 LOCATION: Bilateral cranial TECHNIQUE: Multiple contiguous axial images were obtained of the head. Using automated exposure control and adj ustment of the mA and/or kV according to patient size, radiation dose was kept as low as reasonably a chievable to obtain optimal diagnostic quality images. DICOM format image data is available electro nically for review and comparison. FINDINGS: CEREBRUM: The ventricles are normal for age. No evidence of midline shift, mass lesion, hemorrhage or acute in farction. No extra-axial fluid collections are seen. POSTERIOR FOSSA: The cerebellum and brainstem are intact. The 4th ventricle is midline. The cerebellopontine angle i s unremarkable. EXTRACRANIAL: The visualized portion of the orbits is intact. SKULL: The calvaria is intact. No evidence of skull fracture. CONCLUSION: 1. No acute intracranial abnormality identified. Mikael Quinteros MD on March 28, 2017 at 13:19 Board Certified Radiologist. This report was verified electronically.
--- NOTE | 2017-03-28 13:36 | PD ---
HPI Chief Complaint: Chest Pain Time Seen by Provider: 12:42 Travel History International Travel<30 days: No Contact w/Intl Traveler<30days: No Traveled to known affect area: No History of Present Illness HPI 52-year-old female presents to the ED for evaluation of chest pain. Patient has a history of diabetes, hypertension, family history of heart disease as well as high cholesterol. Patient states that she has a family history of woman in her family having heart attacks at her age. Including her mom. She was concerned because about 30 minutes before coming she felt like her heart stopped when she developed a chest pressure as well as a headache in dizziness. Per patient she has had this before but never as bad at this beer per patient falls Dr. Balderrama for cardiology in had a stress test about a year ago that was not negative. Per patient she is concerned mainly that she might be having something with her heart. She states that currently the pressure on her heart rates 3 out of 10. She did not look anything for it. She took a baby aspirin this morning with her regular meds. She denies any shortness of breath but states that the pain does worsen with movement. States that she felt dizzy initially but now she just feels "off". She is not really able to describe it. She denies any recent travel. No injuries. No urinary or bowel movement issues. No fevers chills or sweats. PFSH Past Medical History Depression: Yes Cancer: Yes (ADENOCARCINOMA COLON) Cardiovascular Problems: Yes (CHF) Congestive Heart Failure: Yes Diabetes: Yes (TYPE 2) Patient Takes Glucophage: No Diminished Hearing: No Endocrine: Yes (DM TYPE 2) Gastrointestinal Disorders: Yes (GERD) Genitourinary: No Hiatal Hernia: No Hypertension: Yes Immune Disorder: No Neurologic: No Psychiatric: Yes (DEPRESSION) Reproductive: No Respiratory: No Thyroid Disease: No Tetanus Vaccination: < 5 Years Influenza Vaccination: Yes ?: Not Past Surgical History Abdominal Surgery: Yes (BOWEL SX AT / instestinal sx) AICD: No Cardiac Surgery: No Section: Yes Ear Surgery: No Endocrine Surgery: No Eye Surgery: No Genitourinary Surgery: No Gynecologic Surgery: Yes (C SECTION) Joint Replacement: No Oral Surgery: Yes (TONSILLECTOMY) Pacemaker: No Thoracic Surgery: No Tonsillectomy: Yes Other Surgery: Yes Social History Alcohol Use: No Tobacco Use: No Substance Use: No Allergies-Medications (Allergen,Severity, Reaction): Coded Allergies: morphine (Unverified Allergy, Severe, OVER ANXIOUS, 03/28/17) tramadol (Unverified Allergy, Severe, PASSED OUT, 03/28/17) Uncoded Allergies: NATEGLINIDE (Adverse Reaction, Severe, DELIRIUM, 09/22/16) Reported Meds & Prescriptions Reported Meds & Active Scripts Active Percocet (Oxycodone-Acetaminophen) 5-325 mg Tab 1 Tab PO Q4H PRN Reported Trulicity Inj (Dulaglutide Inj) 1.5 Mg/0.5 Ml Pen 1.75 Mg SQ Q7D Sucralfate 1 Gm Tab 1 Gm PO DAILY PRN on empty stomach Escitalopram (Escitalopram Oxalate) 10 Mg Tab 10 Mg PO DAILY Pantoprazole (Pantoprazole Sodium) 40 Mg Tab 40 Mg PO DAILY Adult Low Dose Aspirin EC (Aspirin) 81 Mg Tablet.dr 1 Tab PO DAILY Phenergan (Promethazine HCl) 25 Mg Tablet 25 Mg PO DAILY PRN Glipizide 10 Mg Tab 10 Mg PO BIDAC Take 30 minutes before a meal Spironolactone 25 Mg Tab 25 Mg PO DAILY Torsemide 10 Mg Tab 10 Mg PO DAILY Carvedilol 12.5 Mg Tab 12.5 Mg PO BID Losartan (Losartan Potassium) 50 Mg Tab 50 Mg PO BID Meloxicam 15 Mg Tab 15 Mg PO DAILY Atorvastatin (Atorvastatin Calcium) 10 Mg Tab 10 Mg PO DAILY Novolin N Inj (Insulin Human NPH) 1,000 Unit/10 Ml Vial 30 Units SQ BID Review of Systems Except as stated in HPI: all other systems reviewed are Neg Physical Exam Narrative GENERAL: SKIN: Warm and dry. HEAD: Atraumatic. Normocephalic. EYES: Pupils equal and round. No scleral icterus. No injection or drainage. ENT: No nasal bleeding or discharge. Mucous membranes pink and moist. Tongue midline. No uvula deviation NECK: Trachea midline. No JVD. CARDIOVASCULAR: Regular rate and rhythm. No murmurs, S3, S4. RESPIRATORY: No accessory muscle use. Clear to auscultation. Breath sounds equal bilaterally. GASTROINTESTINAL: Abdomen soft, non-tender, nondistended. Hepatic and splenic margins not palpable. MUSCULOSKELETAL: Extremities without clubbing, cyanosis, or edema. No obvious deformities. Full range of motion of the upper lower extremities bilaterally. 2+ pulses bilaterally. NEUROLOGICAL: Awake and alert. No obvious cranial nerve deficits. Motor grossly within normal limits. Five out of 5 muscle strength in the arms and legs. Normal speech. PSYCHIATRIC: Appropriate mood and affect; insight and judgment normal. Data Data Last Documented VS Vital Signs Date Time Temp Pulse Resp B/P (MAP) Pulse Ox O2 Delivery O2 Flow Rate FiO2 03/28/17 13:00 83 20 169/80 (109) 97 Room Air 03/28/17 10:14 98.9 Orders Orders Ckmb (Isoenzyme) Profile (03/28/17 11:16) Complete Blood Count With Diff (03/28/17 11:16) Comprehensive Metabolic Panel (03/28/17 11:16) Magnesium (Mg) (03/28/17 11:16) Prothrombin Time / Inr (Pt) (03/28/17 11:16) Act Partial Throm Time (Ptt) (03/28/17 11:16) Troponin I (03/28/17 11:16) Lipase (03/28/17 11:16) Chest, Pa & Lat (03/28/17 11:16) Ct Brain W/O Iv Contrast(Rout) (03/28/17 ) Aspirin (Aspirin) (03/29/17 09:00) Nitroglycerin Sl (Nitrostat Sl) (03/28/17 13:00) Acetaminophen (Tylenol) (03/28/17 13:00) Aspirin (Aspirin) (03/28/17 13:15) Acetaminophen (Tylenol) (03/28/17 13:15) Admit Order (Ed Use Only) (03/28/17 13:27) Electrocardiogram (03/28/17 ) Labs Laboratory Tests Test 03/28/17 11:25 White Blood Count 8.2 TH/MM3 Red Blood Count 5.34 MIL/MM3 Hemoglobin 12.3 GM/DL Hematocrit 38.7 % Mean Corpuscular Volume 72.6 FL Mean Corpuscular Hemoglobin 23.1 PG Mean Corpuscular Hemoglobin Concent 31.9 % Red Cell Distribution Width 17.6 % Platelet Count 294 TH/MM3 Mean Platelet Volume 8.8 FL Neutrophils (%) (Auto) 50.5 % Lymphocytes (%) (Auto) 35.7 % Monocytes (%) (Auto) 8.9 % Eosinophils (%) (Auto) 4.3 % Basophils (%) (Auto) 0.6 % Neutrophils # (Auto) 4.2 TH/MM3 Lymphocytes # (Auto) 2.9 TH/MM3 Monocytes # (Auto) 0.7 TH/MM3 Eosinophils # (Auto) 0.4 TH/MM3 Basophils # (Auto) 0.1 TH/MM3 CBC Comment DIFF FINAL Differential Comment Prothrombin Time 10.9 SEC Prothromb Time International Ratio 1.1 RATIO Activated Partial Thromboplast Time 23.4 SEC Blood Urea Nitrogen 9 MG/DL Creatinine 0.64 MG/DL Random Glucose 171 MG/DL Total Protein 7.6 GM/DL Albumin 2.9 GM/DL Calcium Level 8.8 MG/DL Magnesium Level 2.3 MG/DL Alkaline Phosphatase 121 U/L Aspartate Amino Transf (AST/SGOT) 21 U/L Alanine Aminotransferase (ALT/SGPT) 42 U/L Total Bilirubin 0.2 MG/DL Sodium Level 138 MEQ/L Potassium Level 4.1 MEQ/L Chloride Level 106 MEQ/L Carbon Dioxide Level 24.4 MEQ/L Anion Gap 8 MEQ/L Estimat Glomerular Filtration Rate 117 ML/MIN Total Creatine Kinase 51 U/L Troponin I LESS THAN 0.02 NG/ML Lipase 60 U/L MDM Medical Decision Making Medical Screen Exam Complete: Yes Emergency Medical Condition: Yes Medical Record Reviewed: Yes Interpretation(s) EKG shows sinus rhythm with no sign of acute ischemia or arrythmia read by me and attending troponin and CK-MB negative. Coags within normal limits. Last Impressions Chest X-Ray 03/28/17 1116 Signed Impressions: Service Date/Time: Tuesday, March 28, 2017 11:56 - CONCLUSION: No acute disease. Carlitos Desai MD Head CT 03/28/17 0000 Signed Impressions: Service Date/Time: Tuesday, March 28, 2017 13:09 - CONCLUSION: 1. No acute intracranial abnormality identified. Mikael Quinteros MD CBC & BMP Diagram 03/28/17 11:25 Total Protein 7.6, Albumin 2.9 L, Calcium Level 8.8, Magnesium Level 2.3, Alkaline Phosphatase 121 H, Aspartate Amino Transf (AST/SGOT) 21, Alanine Aminotransferase (ALT/SGPT) 42, Total Bilirubin 0.2 Differential Diagnosis Chest pain versus ACS versus an STEMI versus atypical chest pain versus PE versus dizziness Narrative Course 52-year-old female presents to the ED for evaluation of chest pain. Patient has properly examined L spine to have signs on symptoms consistent appears to be chest pain. Concerning for cardiac in nature. Patient with given nitroglycerin N aspirin with good relief. Patient will given Tylenol for her headache. Patient's pain now his negligent. Patient reports he does have risk factors for ACS. Recommendation at this time as for admission for chest pain center rule out. Patient agrees with this plan. Patient was not into the chest pain center. Procedures EKG Prior to Arrival: No Diagnosis Primary Impression: Chest pain in adult Admitting Information Admitting Physician Requests: Observation Maninder Foster Mar 28, 2017 13:36
[2017-03-28] MEDS ORDERED: ACETAMINOPHEN 500 MG CPLT PO PRN (13:45)
[2017-03-28] MEDS ORDERED: SODIUM CHLORIDE 0.9% FLUSH 10 ML FLUSH IV FLUSH PRN (13:45)
[2017-03-28] MEDS ORDERED: NITROGLYCERIN 0.4 MG SL 25 TABS/BTL SL PRN (13:45)
[2017-03-28] MEDS ORDERED: ONDANSETRON HCL 4 MG/2 ML VIAL IV PUSH PRN (13:45)
[2017-03-28 14:50] VITALS: BP 138/71
--- NOTE | 2017-03-28 14:56 | HHI.HP ---
HPI Primary Care Physician Primary Care Physician-[place], [place] Chief Complaint Chest discomfort History of Present Illness 52 year old female with history of DM, HLD, and HTN presents to ER for further evaluation of chest discomfort. Onset 929. Sudden onset, nonexertional. Location substernal. Characterized as "feeling my heart beat and then heart beat got stuck" followed by immediate dizziness, nausea, and feeling "clammy." Denied any chest pain or discomfort. After approximately 10 minutes symptoms persisted and reports additional episode of heart skipping beat. No associated symptoms with vomiting or dyspnea. No known precipitating or relieving factors. Denies similar discomfort in the past. Since episodes reports "my mind feels off." Remains chest pain free, denies any further skipping heart beats. Reporting intermittent "waves of nausea" since arrival to ED. Evaluated 1 one year ago for chest pain. Reports after cardiac testing she was told discomfort related to esophageal spasm. Denies presenting symptom to be similar to esophageal spasms. Review of Systems General: No fatigue,weakness, fever, chills, recent illness, or change in appetite. Has been in her general state of health. HEENT: Current [place] she relates to nitro SL given to her. no vision changes, no nasal congestion or drainage, no dysphasia CV: As stated above. No palpitations. Dizziness has resolved. RESP: No SOB, cough, wheeze, asthma, or recent URI. GI: No nausea, vomiting, bowel changes, diarrhea, constipation, pain, distention. : No dysuria, urgency, frequency EXT: No lower leg edema, no paraesthesias MS: No discomfort, change in ROM, or injury NEURO: No LOC, motor/sensory deficits, no weakness, no vision changes. PSYCH: No anxiety, depression SKIN: No rashes, no concerning lesions Past Family Social History Allergies: Coded Allergies: morphine (Unverified Allergy, Severe, OVER ANXIOUS, 03/28/17) tramadol (Unverified Allergy, Severe, PASSED OUT, 03/28/17) Uncoded Allergies: NATEGLINIDE (Adverse Reaction, Severe, DELIRIUM, 09/22/16) Past Medical History Hypertension, hyperlipidemia, type 2 diabetes, GERD, congestive heart failure Past Surgical History Tonsillectomy, Reported Medications Reported Meds & Active Scripts Active Percocet (Oxycodone-Acetaminophen) 5-325 mg Tab 1 Tab PO Q4H PRN Trulicity Inj (Dulaglutide Inj) 1.5 Mg/0.5 Ml Pen 1.75 Mg SQ Q7D Sucralfate 1 Gm Tab 1 Gm PO DAILY PRN on empty stomach Escitalopram (Escitalopram Oxalate) 10 Mg Tab 10 Mg PO DAILY Pantoprazole (Pantoprazole Sodium) 40 Mg Tab 40 Mg PO DAILY Adult Low Dose Aspirin EC (Aspirin) 81 Mg Tablet.dr 1 Tab PO DAILY Phenergan (Promethazine HCl) 25 Mg Tablet 25 Mg PO DAILY PRN Glipizide 10 Mg Tab 10 Mg PO BIDAC Take 30 minutes before a meal Spironolactone 25 Mg Tab 25 Mg PO DAILY Torsemide 10 Mg Tab 10 Mg PO DAILY Carvedilol 12.5 Mg Tab 12.5 Mg PO BID Losartan (Losartan Potassium) 50 Mg Tab 50 Mg PO BID Meloxicam 15 Mg Tab 15 Mg PO DAILY Atorvastatin (Atorvastatin Calcium) 10 Mg Tab 10 Mg PO DAILY Novolin N Inj (Insulin Human NPH) 1,000 Unit/10 Ml Vial 30 Units SQ BID Active Ordered Medications Current Medications Medications (Trade) Dose Ordered Sig/Robert Route Start Time Stop Time Status Last Admin (NS Flush) 2 ml UNSCH PRN IV FLUSH 03/28/17 13:45 (NS Flush) 2 ml BID IV FLUSH 03/28/17 21:00 (Tylenol) 500 mg Q4H PRN PO 03/28/17 13:45 (Zofran Inj) 4 mg Q6H PRN IV PUSH 03/28/17 13:45 (Nitrostat Sl) 0.4 mg Q5M PRN SL 03/28/17 13:45 (Aspirin) 325 mg DAILY PO 03/29/17 09:00 Family History Mother CABG in early 50s, with x2 redo surgeries. Social History Known [id number] diabetes type 2 (dx 10-15 years ago), hypertension, and hyperlipidemia. Lifelong nonsmoker. Denies any alcohol or illegal drug use. Endorses a sedentary lifestyle. Past cardiac testing Follows with Dr. Jazmyne Damon, last appointment approximately 6 months ago. No recent cardiac testing. Reports chemical stress testing completed last year at [facility] , reported to be unremarkable. Physical Exam Vital Signs Vital Signs Date Time Temp Pulse Resp B/P (MAP) Pulse Ox O2 Delivery O2 Flow Rate FiO2 03/28/17 13:00 83 20 169/80 (109) 97 Room Air 03/28/17 12:47 84 20 98 Room Air 03/28/17 10:14 98.9 88 18 167/101 (123) 100 Physical Exam GENERAL: Alert WN, WD, NAD, pleasant, morbidly obese female HEAD: NC, AT EYES: Sclera clear, conjunctiva without injection, pupils equal and round ENT: Mucous membranes pink and moist CV: RRR, without murmur, rub, gallop, no JVD, S1-S2 no S3-S4. Chest wall nontender with palpation. RESP: Clear lungs throughout bilateral, no crackles, wheeze, rhonchi, symmetrical chest rise, nonlabored, able to speak in full sentences ABD: Soft, NT, ND, positive bowel tones EXT: Pulses +14, no dependent edema MS: Normal tone 4 extremities, no obvious deformities, full range of motion NEURO: CN II through CN XII grossly intact, motor strength 5/5 PSYCH: A+O 3, pleasant affect, appropriate speech, mood, insight and judgment SKIN: Normal turgor, normal texture, no lesions, no rashes Laboratory Laboratory Tests Test 03/28/17 11:25 White Blood Count 8.2 Red Blood Count 5.34 Hemoglobin 12.3 Hematocrit 38.7 Mean Corpuscular Volume 72.6 Mean Corpuscular Hemoglobin 23.1 Mean Corpuscular Hemoglobin Concent 31.9 Red Cell Distribution Width 17.6 Platelet Count 294 Mean Platelet Volume 8.8 Neutrophils (%) (Auto) 50.5 Lymphocytes (%) (Auto) 35.7 Monocytes (%) (Auto) 8.9 Eosinophils (%) (Auto) 4.3 Basophils (%) (Auto) 0.6 Neutrophils # (Auto) 4.2 Lymphocytes # (Auto) 2.9 Monocytes # (Auto) 0.7 Eosinophils # (Auto) 0.4 Basophils # (Auto) 0.1 CBC Comment DIFF FINAL Differential Comment Prothrombin Time 10.9 Prothromb Time International Ratio 1.1 Activated Partial Thromboplast Time 23.4 Blood Urea Nitrogen 9 Creatinine 0.64 Random Glucose 171 Total Protein 7.6 Albumin 2.9 Calcium Level 8.8 Magnesium Level 2.3 Alkaline Phosphatase 121 Aspartate Amino Transf (AST/SGOT) 21 Alanine Aminotransferase (ALT/SGPT) 42 Total Bilirubin 0.2 Sodium Level 138 Potassium Level 4.1 Chloride Level 106 Carbon Dioxide Level 24.4 Anion Gap 8 Estimat Glomerular Filtration Rate 117 Total Creatine Kinase 51 Troponin I LESS THAN 0.02 Lipase 60 Result Diagram: 03/28/17 1125 03/28/17 1125 Imaging Last 48 hours Impressions Chest X-Ray 03/28/17 1116 Signed Impressions: Service Date/Time: Tuesday, March 28, 2017 11:56 - CONCLUSION: No acute disease. Carlitos Desai MD Head CT 03/28/17 0000 Signed Impressions: Service Date/Time: Tuesday, March 28, 2017 13:09 - CONCLUSION: 1. No acute intracranial abnormality identified. Mikael Quinteros MD Course EKG NSR, normal axis, no st t segment changes Caprini VTE Risk Assessment Caprini VTE Risk Assessment: No/Low Risk (score <= 1) Caprini Risk Assessment Model Point Value = 1 Point Value = 2 Point Value = 3 Point Value = 5 Age 41-60 Minor surgery BMI > 25 kg/m2 Swollen legs Varicose veins or History of unexplained or recurrent spontaneous Oral contraceptives or hormone replacement Sepsis (< 1 month) Serious lung disease, including pneumonia (< 1 month) Abnormal pulmonary function Acute myocardial infarction Congestive heart failure (< 1 month) History of inflammatory bowel disease Medical patient at bed rest Age 61-74 Arthroscopic surgery Major open surgery (> 45 min) Laparoscopic surgery (> 45 min) Malignancy Confined to bed (> 72 hours) Immobilizing plaster cast Central venous access Age >= 75 History of VTE Family history of VTE Factor V Leiden Prothrombin [id number] Lupus anticoagulant Anticardiolipin antibodies Elevated serum homocysteine Heparin-induced thrombocytopenia Other congenital or acquired thrombophilia Stroke (< 1 month) Elective arthroplasty Hip, pelvis, or leg fracture Acute spinal cord injury (< 1 month) Prophylaxis Regimen Total Risk Factor Score Risk Level Prophylaxis Regimen 0-1 Low Early ambulation 2 Moderate Order ONE of the following: *Sequential Compression Device (SCD) *Heparin 5000 units SQ BID 3-4 Higher Order ONE of the following medications: *Heparin 5000 units SQ TID *Enoxaparin/Lovenox 40 mg SQ daily (WT < 150 kg, CrCl > 30 mL/min) *Enoxaparin/Lovenox 30 mg SQ daily (WT < 150 kg, CrCl > 10-29 mL/min) *Enoxaparin/Lovenox 30 mg SQ BID (WT < 150 kg, CrCl > 30 mL/min) AND/OR *Sequential Compression Device (SCD) 5 or more Highest Order ONE of the following medications: *Heparin 5000 units SQ TID (Preferred with Epidurals) *Enoxaparin/Lovenox 40 mg SQ daily (WT < 150 kg, CrCl > 30 mL/min) *Enoxaparin/Lovenox 30 mg SQ daily (WT < 150 kg, CrCl > 10-29 mL/min) *Enoxaparin/Lovenox 30 mg SQ BID (WT < 150 kg, CrCl > 30 mL/min) AND *Sequential Compression Device (SCD) Assessment and Plan Assessment and Plan #1 Atypical chest discomfort-admitted to chest pain center. Rule out with 3 sets of EKG, cardiac enzymes, and monitor on telemetry. Will be seen and evaluated by Dr. iNcolle Denton. No evidence of arrhythmias noted on monitor. Discussed possible chemical stress testing, this will be determined after evaluation by roll wrapper. Patient is agreeable to plan of care. #2 Type 2 diabetes-will resume home insulin and oral anti-glycemics after NPO status lifted. SSI moderate dose coverage in interm. #3 Hypertension-continue losartan #4 History of CHF-continue spironolactone, carvedilol, and torsemide 1640 Seen and evaluated by Dr. Nicolle Denton. Plans to proceed with Lexiscan in morning. Will attempt to order a two day study to start process this evening. Patient agreeable to plan of care. Alanis Muñoz Mar 28, 2017 14:56
[2017-03-28] MEDS ORDERED: GLUCAGON 1 MG/ML VIAL OTHER PRN (15:00)
[2017-03-28] MEDS ORDERED: DEXTROSE 50% IN WATER 50 ML VIAL(D50) IV PUSH PRN (15:00)
[2017-03-28 15:17] VITALS: BP 125/69; PULSE 71; RESP 18; TEMP 98; O2SAT 96
[2017-03-28 15:27] LABS: TROPONIN I LESS THAN 0.02 NG/ML (0.02-0.05)
[2017-03-28 16:41] VITALS: PULSE 71
--- NOTE | 2017-03-28 16:59 | EKG ---
Date Performed: 03/28/2017 Time Performed: 14:39:25 PTAGE: 52 years EKG: Sinus rhythm NORMAL ECG Since PREVIOUS TRACING , no significant change noted PREVIOUS TRACIN03/28/2017 10.35 DOCTOR: Nicolle Denton Interpretating Date/Time 03/28/2017 16:58:35
[2017-03-28] MEDS: INSULIN ASPART SUPPLEMENTAL SCALE SQ SCH ×2 (17:00→20:23)
[2017-03-28 18:20] LABS: TROPONIN I LESS THAN 0.02 NG/ML (0.02-0.05)
[2017-03-28] MEDS: SODIUM CHLORIDE 0.9% FLUSH 10 ML FLUSH IV FLUSH SCH (20:22)
[2017-03-28] MEDS: oxyCODONE/ACETAMINOPHEN 5 MG/325 MG TAB PO PRN (20:23)
[2017-03-28] MEDS: LOSARTAN 50 MG TAB PO SCH (20:23)
[2017-03-28] MEDS: CARVEDILOL 12.5 MG TAB PO SCH (20:23)
[2017-03-28 21:37] VITALS: BP 124/60; PULSE 82; RESP 18; TEMP 98.1; O2SAT 95
[2017-03-29] VITALS: BP 96/50; PULSE 84; RESP 20; TEMP 98.3; O2SAT 96
[2017-03-29 03:40] VITALS: PULSE 82
[2017-03-29 04:35] VITALS: BP 111/58; PULSE 79; RESP 20; TEMP 98.2; O2SAT 94
[2017-03-29 07:32] VITALS: PULSE 84
[2017-03-29 07:33] VITALS: BP 117/59; PULSE 81; RESP 16; TEMP 98.3; O2SAT 96
[2017-03-29 07:51] VITALS: O2SAT 97
[2017-03-29] MEDS: INSULIN ASPART SUPPLEMENTAL SCALE SQ SCH ×2 (08:00→12:49)
[2017-03-29] MEDS: CARVEDILOL 12.5 MG TAB PO SCH (08:55)
[2017-03-29] MEDS: LOSARTAN 50 MG TAB PO SCH (08:56)
[2017-03-29] MEDS: SODIUM CHLORIDE 0.9% FLUSH 10 ML FLUSH IV FLUSH SCH (09:00)
[2017-03-29] MEDS ORDERED: TORSEMIDE 5 MG TAB PO SCH (09:00)
[2017-03-29] MEDS ORDERED: ATORVASTATIN 10 MG TAB PO SCH (09:00)
[2017-03-29] MEDS ORDERED: SPIRONOLACTONE 25 MG TAB PO SCH (09:00)
[2017-03-29] MEDS ORDERED: PANTOPRAZOLE SOD 40 MG DELAYED RELEASE TAB PO SCH (09:00)
[2017-03-29] MEDS ORDERED: ASPIRIN 325 MG TAB PO SCH ×2 (09:00)
[2017-03-29] MEDS ORDERED: ESCITALOPRAM OXALATE 10 MG TAB PO SCH (09:00)
[2017-03-29] MEDS ORDERED: REGADENOSON INJ 0.4 MG/5 ML SYR ONE (11:08)
[2017-03-29] MEDS: oxyCODONE/ACETAMINOPHEN 5 MG/325 MG TAB PO PRN (12:48)
--- NOTE | 2017-03-29 12:58 | RADRPT ---
EXAM DATE/TIME: 03/29/2017 10:16 [facility] COMPARISON: No previous studies available for comparison. INDICATIONS : Substernal chest pain. Angina. DOSE: 35.0 mCi Tc99m Myoview at stress. 11.0 mCi Tc99m Myoview at rest. 0.4 mg Lexiscan STRESS SYMPTOMS: Chest pain, dyspnea, and headache. EJECTION FRACTION: 70% MEDICAL HISTORY : Hypercholesterolemia. Diabetes mellitus type 2. Hypertension. SURGICAL HISTORY : Colon resection. Cholecystectomy. ENCOUNTER: Initial ACUITY: 1 day PAIN SCALE: 7/10 LOCATION: Substernal chest TECHNIQUE: The patient underwent pharmacologic stress with infusion of prescribed dose. Continuous ECG tracing was monitored during stress. Gated SPECT imaging was performed after stress and conventional SPECT i maging was performed at rest. The examination was performed on a SPECT/CT scanner, both attenuation and non-corrected datasets were reviewed. FINDINGS: DISTRIBUTION: The maximum perfused segment at stress is in the inferior wall. Raw data images demonstrate prominent breast attenuation on both the stress and rest images; the attenuation artifact causes elevation of the summed stress score (16), but by qualitative assessment, no reversible perfusion defects are seen .. PERFUSION STUDY: The pattern of perfusion at stress is within normal limits with regional variations of perfusion with in 30%. The pattern of perfusion at stress and rest is unchanged without evidence. GATED STUDY: There is intact wall motion and thickening without hypokinetic or dyskinetic segments. CONCLUSION: 1. No evidence of stress-induced ischemia. 2. Intact wall motion with 70% ejection fraction. RISK CATEGORY: Low (<1% Annual Mortality Rate) Yves Choe MD on March 29, 2017 at 12:53 Board Certified Radiologist. This report was verified electronically.
--- NOTE | 2017-03-29 13:05 | EKG ---
Date Performed: 03/28/2017 Time Performed: 19:43:52 PTAGE: 52 years EKG: Sinus rhythm NORMAL ECG NO PREVIOUS TRACING DOCTOR: Meng Mora Interpretating Date/Time 03/29/2017 13:04:01
--- NOTE | 2017-03-29 13:06 | EKG ---
Date Performed: 03/28/2017 Time Performed: 17:39:55 PTAGE: 52 years EKG: Sinus rhythm NORMAL ECG PREVIOUS TRACING : 03/28/2017 14.39 DOCTOR: Meng Mora Interpretating Date/Time 03/29/2017 13:05:06
--- NOTE | 2017-03-29 13:09 | EKG ---
Date Performed: 03/28/2017 Time Performed: 10:35:22 PTAGE: 52 years EKG: Sinus rhythm LOW QRS VOLTAGE IN PRECORDIAL LEADS BORDERLINE ECG INTERPRETATION BASED ON A DEFAULT AGE OF 40 YEARS PREVIOUS TRACING : 07/27/2016 12.03 Since previous tracing, no significant change noted DOCTOR: Meng Mora Interpretating Date/Time 03/29/2017 13:07:03
--- NOTE | 2017-03-29 13:09 | TR ---
Date Performed: 03/29/2017 Time Performed: 10:59:40 DOCTOR: Meng Mora DRUG LIST: CLINICAL HISTORY: REASON FOR TEST: Angina REASON FOR ENDING: OBSERVATION: CONCLUSION: Lexiscan stress test was performed under standard four minute protocol. Radionuclid e was injected one minute prior to ending the test. No electrocardiographic abormalities were present to suggest ischemia. Nuclear imaging and interpretation are pending. COMMENTS:
--- NOTE | 2017-03-29 13:27 | HHI.DCPOC ---
Discharge Care Plan Diagnosis: (1) Chest pain (2) Hypertension (3) DM (diabetes mellitus) (4) Hyperlipidemia (5) Obesity Goals to Promote Your Health * To prevent worsening of your condition and complications * To maintain your health at the optimal level Directions to Meet Your Goals Take your medications as prescribed Follow your dietary instruction Follow activity as directed Keep your appointments as scheduled Take your immunizations and boosters as scheduled If your symptoms worsen call your PCP, if no PCP go to Urgent Care Center or Emergency Room Smoking is Dangerous to Your Health. Avoid second hand smoke Call the 24-hour hour crisis hotline for domestic abuse at Ruslan Osullivan Mar 29, 2017 13:27
== END 2017-03-29 14:06 | disposition home or self-care (01) ==
LOC: NEPE 10:12 → NEDA 13:28 → NEPHCDU 15:08
PROVIDERS: ADMIT Internal Medicine Interventional Cardiology; ATTEND Internal Medicine Interventional Cardiology
DX: R07.89 Other chest pain (principal); I11.0 Hypertensive heart disease with heart failure; I50.9 Heart failure, unspecified; E78.5 Hyperlipidemia, unspecified; E11.9 Type 2 diabetes mellitus without complications; K21.9 Gastro-esophageal reflux disease without esophagitis; K22.4 Dyskinesia of esophagus; E66.9 Obesity, unspecified; Z79.4 Long term (current) use of insulin; Z85.038 Personal history of other malignant neoplasm of large intestine; Z82.49 Family history of ischemic heart disease and other diseases of the circulatory system; Z68.43 Body mass index [BMI] 50.0-59.9, adult
CPT/HCPCS: 70450; 71046; 78452; 80053; 82550; 82948; 83690; 83735; 84484; 85025; 85610; 85730; 93005; 93017; 96372; 99285; A9502; G0378; J1815; J2785